=== PATIENT | female | born 1955 | race Caucasian/White ===

== ENCOUNTER 2022-04-12 08:29 | Emergency (ER) | payer MEDICARE ==
[2022-04-12] MEDS ORDERED: LIDOCAINE PATCH 5% TOP STA (11:02)
[2022-04-12] MEDS ORDERED: ONDANSETRON ODT 4 MG TABLET TL STA (11:02)
[2022-04-12 11:15] LABS: BASOPHILS % (AUTO) 0.5 %; EOSINOPHILS % (AUTO) 0.3 %; HCT - HEMATOCRIT 40.5 % (37.0-47.0); HGB - HEMOGLOBIN 12.9 g/dL (12.0-16.0); LYMPHOCYTES % (AUTO) 61.3 %; MEAN CORPUSCULAR HEMOGLOBIN 29.3 pg (27.0-31.0); MEAN CORPUSCULAR HGB CONC 31.9 g/dL (32.0-36.0); MEAN CORPUSCULAR VOLUME 91.8 fL (81.0-99.0); MEAN PLATELET VOLUME 10.1 fL (7.9-10.8); MONOCYTES % (AUTO) 3.6 %; NEUTROPHILS % (AUTO) 34.1 %; PLT - PLATELET COUNT 209 10^3/uL (130-450); RED BLOOD COUNT 4.41 10^6/uL (4.20-5.40); RED CELL DISTRIBUTION WIDTH 12.7 % (12.0-15.0); WHITE BLOOD COUNT 12.8 x10^3/uL (4.8-10.8)
[2022-04-12 11:18] LABS: SLIDE REVIEW? Indicated
[2022-04-12 11:19] LABS: ABNORMAL LYMPHS % (MANUAL) 0 %; BAND NEUTROPHILS % (MANUAL) 0 %
[2022-04-12 11:26] LABS: ALBUMIN 4.3 g/dL (3.2-5.5); ALBUMIN/GLOBULIN RATIO 1.5 (1.0-2.2); BILIRUBIN,TOTAL 0.8 mg/dL (0.2-1.0); CALCIUM 9.1 mg/dL (8.5-10.3); CREATININE 0.8 mg/dL (0.4-1.0); POTASSIUM 3.7 mmol/L (3.5-5.0); TOTAL PROTEIN 7.1 g/dL (6.7-8.2)
[2022-04-12 11:37] LABS: DIFFERENTIAL COMMENT MANUAL DIFFERENTIAL; EOSINOPHILS # (MANUAL) 0.1 10^3/uL (0-0.7); LYMPHOCYTES # (MANUAL) 8.3 10^3/uL (1.5-3.5); LYMPHOCYTES % (MANUAL) 31 %; MONOCYTES # (MANUAL) 0.1 10^3/uL (0.0-1.0); NEUTROPHILS # (MANUAL) 4.2 10^3/uL (1.5-6.6); REACTIVE LYMPHS % (MANUAL) 34 %
[2022-04-12 11:50] VITALS: BP 135/74
--- NOTE | 2022-04-12 12:11 | ED Physician Documentation ---
History of Present Illness - Stated complaint Stated Complaint: BACK PX - Chief complaint Chief Complaint: General - History obtained from History obtained from: Patient - Additonal information Additional information: Patient is a 66-year-old female presenting for vague complaints of body aches and difficulty with sleeping. She recently tapered off of Valium and started gabapentin. She had been on Valium for 20 years and wanted to get off this medication so tapered off in conjunction with her PCP. For the past several nights she has had difficulty with her sleep. She is also reported nausea and various body aches.She did see her PCP yesterday who recommended [id number] treatments. She tried melatonin and Benadryl last night without any significant improvement.She denies headache, chest pain, difficulty breathing, abdominal pain, dysuria. Review of Systems Constitutional: denies: Fever Cardiac: denies: Chest pain / pressure Respiratory: denies: Dyspnea GI: denies: Abdominal Pain : denies: Dysuria Neurologic: denies: Headache Psychiatric: reports: Insomnia PD PAST MEDICAL HISTORY - Past Medical History Past Medical History: No - Past Surgical History Past Surgical History: Yes Ortho: Arthroscopic surgery - Present Medications Home Medications: Ambulatory Orders Medication Instructions Recorded Confirmed Lidocaine Patch 5% [Lidoderm Patch] 1 patch TOP DAILY PRN #10 patch 04/12/22 Ondansetron Odt [Zofran] 4 mg TL Q6H PRN #10 tablet 04/12/22 - Allergies Allergies/Adverse Reactions: Allergies Allergy/AdvReac Type Severity Reaction Status Date / Time [id number]-[id number] Reductase Allergy Unknown Verified 04/12/22 08:41 Inhibitor bacitracin AdvReac Rash Verified 04/12/22 08:41 [From Neosporin ([id number])] neomycin AdvReac Rash Verified 04/12/22 08:41 [From Neosporin ([id number])] polymyxin B AdvReac Rash Verified 04/12/22 08:41 [From Neosporin ([id number])] Sulfa (Sulfonamide AdvReac Rash Verified 04/12/22 08:41 Antibiotics) - Social History Does the pt smoke?: No Smoking Status: Never smoker Does the pt drink ETOH?: No Does the pt have substance abuse?: No - Immunizations Immunizations are current?: Yes PD ED PE NORMAL - General General: Alert and oriented X 3, No acute distress, Well developed/nourished - HEENT HEENT: Atraumatic - Neck Neck: Supple, no meningeal sign - Cardiac Cardiac: RRR, Other (Mild tenderness to right chest wall, no deformity, no rash) - Respiratory Respiratory: No respiratory distress, Clear bilaterally - Abdomen Abdomen: Soft, Non tender - Back Back: No spinal TTP - Derm Derm: Warm and dry - Extremities Extremities: Normal ROM s pain - Neuro Neuro: Alert and oriented X 3, No motor deficit, Normal speech Results - Vitals Vitals: Vital Signs - 24 hr 04/12/22 04/12/22 08:35 11:48 Temperature 36.8 C Heart Rate 82 53 L Respiratory 17 16 Rate Blood Pressure 150/104 H 135/74 H O2 Saturation 95 98 Oxygen O2 Source Room air - EKG (time done) 1126 Rate: Rate (enter#) (52) Rhythm: Sinus bradycardia [place]: Normal Ischemia: No: ST elevation c/w ischemia Compare to prior EKG: Old EKG unavailable - Labs Labs: Laboratory Tests 04/12/22 04/12/22 11:09 11:09 WBC 12.8 H RBC 4.41 Hgb 12.9 Hct 40.5 MCV 91.8 MCH 29.3 MCHC 31.9 L RDW 12.7 Plt Count 209 MPV 10.1 Neut # (Auto) Not Reportable Lymph # (Auto) Not Reportable [place] # (Auto) Not Reportable Eos # (Auto) Not Reportable Baso # (Auto) Not Reportable Absolute Nucleated RBC Not Reportable Total Counted 100 Band Neuts % (Manual) 0 Reactive Lymphs % (Man) 34 Abnorm Lymph % (Manual) 0 Nucleated RBC % Not Reportable Neutrophils # (Manual) 4.2 Lymphocytes # (Manual) 8.3 H Monocytes # (Manual) 0.1 Eosinophils # (Manual) 0.1 Basophils # (Manual) 0.0 Differential Comment MANUAL DIFFERENTIAL Manual Slide Review Indicated Sodium 132 L Potassium 3.7 Chloride 96 L Carbon Dioxide 28 Anion Gap 8.0 BUN 11 Creatinine 0.8 Estimated GFR (MDRD) 72 L Glucose 105 H Calcium 9.1 Total Bilirubin 0.8 AST 21 ALT 16 Alkaline Phosphatase 54 Total Protein 7.1 Albumin 4.3 Globulin 2.8 Albumin/Globulin Ratio 1.5 Lipase 42 PD Medical Decision Making - ED course Complexity details: reviewed results, re-evaluated patient ED course: Patient presenting for evaluation of decreased p.o. intake, and insomnia in the setting of recently getting off of Valium. No evidence to suggest benzodiazepine withdrawal seizure. Her neuro exam here is normal. Her vital signs are stable. An EKG is reviewed as well as a chest x-ray without significant findings. Her labs were reviewed with mild hyponatremia of 132. She is feeling better withZofran and lidocaine patch. She does not want to be on other medications that could also be habit-forming as she just got off of Valium.As such I recommend continued follow-up with her primary care doctor to discuss other options to help her sleep. She is counseled on concerning symptoms to return for and Is ambulatory at discharge. Departure - Departure Disposition: 01 Home, Self Care Clinical Impression: Nausea, Difficulty sleeping Condition: Stable Instructions: ED Insomnia Follow-Up: [facility] [Provider Group] Prescriptions: Lidocaine Patch 5% [Lidoderm Patch] 1 patch TOP DAILY PRN #10 patch PRN Reason: pain Ondansetron Odt [Zofran] 4 mg TL Q6H PRN #10 tablet PRN Reason: Nausea / Vomiting Comments: Your labs showed that your salt level is slightly low. Please make sure you are staying hydrated and eating well today. I have sent a prescription for anti- nausea medication to I then directed in [place]. I also sent a prescription for lidocaine patches. I would recommend close follow-up with your primary care doctor regarding your new medication as well as your continued difficulties with sleep. If you have any new or worsening symptoms please consider return to the emergency department. Discharge Date/Time: 04/12/22 12:19
--- NOTE | 2022-04-12 12:15 | XRAY Report ---
PROCEDURE: Chest 1 View X-Ray INDICATIONS: R sided ache TECHNIQUE: One view of the chest was acquired. COMPARISON: None. FINDINGS: Surgical changes and devices: None. Lungs and pleura: No pleural effusions or pneumothorax. Lungs are clear. Mediastinum: Mediastinal contours appear normal. Heart size is normal. Bones and chest wall: No suspicious bony lesions. Overlying soft tissues appear unremarkable. IMPRESSION: No acute cardiopulmonary abnormality. Reviewed by: Jad Brown MD on 04/12/2022 12:13 PM [facility] Approved by: Jad Brown MD on 04/12/2022 12:13 PM [facility] Station ID: [id number]
== END 2022-04-12 12:19 | disposition home or self-care (01) ==
LOC: ED 08:29
DX: R11.0 Nausea (principal); G47.00 Insomnia, unspecified
CPT/HCPCS: 36415; 71045; 80053; 83690; 85025; 93005; 99283; 99284; A9270; Q0162